=== PATIENT | male | born 1940 | race Caucasian/White ===

== ENCOUNTER 2017-05-21 07:51 | Inpatient (IN) ==
--- NOTE | 2017-05-20 17:33 | Discharge Summary ---
<Mayuri Ruiz - Last Filed: 05/20/17 17:28> Date of Encounter: 05/20/17 - Discharge Diagnosis (1) Osteoarthritis of left knee Priority: Primary Status: Chronic Qualifiers: Osteoarthritis type: unspecified Qualified Code(s): M17.12 - Unilateral primary osteoarthritis, left knee (2) Status post total left knee replacement Status: Acute (3) Lumbar stenosis Priority: Secondary Status: Chronic Qualifiers: Neurogenic claudication status: unspecified Qualified Code(s): M48.061 - Spinal stenosis, lumbar region without neurogenic claudication (4) History of loop recorder Priority: Secondary Status: Chronic (5) History of CVA (cerebrovascular accident) Priority: Secondary Status: Chronic (6) Anxiety Priority: Secondary Status: Chronic - Discharge Medications Home Medications: Aspirin Enteric Coated [Aspirin EC] 325 mg PO DAILY 21 Days #21 tablet. [Rx] OxyCODONE Immed Rel [Roxicodone 5 MG] 5 mg PO Q6HR PRN 7 Days #28 tablet [Rx] LORazepam [Ativan] 1 mg PO HS 05/21/17 [History] Allergies/Adverse Reactions: 3 Allergy/AdvReac Type Severity Reaction Status Date / Time Iodinated Contrast- Oral and Allergy Itching Verified 05/21/17 08:11 IV Dye [Iodinated Contrast Media - IV Dye] Primary care physician: Stefan Murrieta MD - Patient Status Disposition: Home Health Service Condition: Good - Discharge Instructions Follow Up With: Stefan Murrieta MD [Primary Care Provider] - - Hospital Course Hospital course: Mr. Diaz is a 77 year old male - Time Spent with Patient Total time spent providing and/or coordinating discharge services: <Chencho Mueller - Last Filed: 05/23/17 08:07> Date of Encounter: 05/23/17 Time of Encounter: 08:06 - Discharge Diagnosis (1) Osteoarthritis of left knee Priority: Primary Status: Chronic Qualifiers: Osteoarthritis type: unspecified Qualified Code(s): M17.12 - Unilateral primary osteoarthritis, left knee (2) Status post total left knee replacement Priority: Primary Status: Acute (3) Lumbar stenosis Priority: Secondary Status: Chronic Qualifiers: Neurogenic claudication status: unspecified Qualified Code(s): M48.061 - Spinal stenosis, lumbar region without neurogenic claudication (4) History of CVA (cerebrovascular accident) Priority: Secondary Status: Chronic (5) Anxiety Priority: Secondary Status: Chronic Primary care physician: Stefan Murrieta MD - Patient Status Functional capacity at discharge: uses cane/walker Overall status at discharge: patient is progressing back to baseline - Hospital Course Hospital course: Mr. Diaz is a 77 year old male Status post left total knee replacement The patient had an uneventful postoperative course. They received antibiotics and physical therapy and were discharged in stable condition. There will follow -up in the office in 2 weeks. - Time Spent with Patient Total time spent providing and/or coordinating discharge services:
[~2017-05-21 07:51] MED LIST: Povidone-Iodine 22.5 ML, Sodium Chloride IRRigation 500 ML IR ONE
[2017-05-21] MEDS ORDERED: Ethanol\\Acetic Acid\\Na Ace\\Ben 1,000 ML IRRIG.SOLN IR ONE (07:54)
--- NOTE | 2017-05-21 08:04 | History & Physical Report ---
Date of Encounter: 05/21/17 Time of Encounter: 08:04 24 Hour HP Update - Instructions Instructions: If the History and Physical is less than 30 days old and was completed prior to A.M. admission and or procedure and has NOT been updated on calendar day of procedure please complete this update prior to performing procedure. - Update Patient reports changes in Medical Condition: No Changes in examination, assessment, or condition: No Changes in Medication: No Preop tests/diagnostics Reviewed: Yes Surgery Remains Indicated: Yes Consent for Planned Operative Procedure(s) Verified: Yes - Pre-Operative Checklist Preoperative Checklist Indicated: No Prophylactic Antibiotic Ordered: Yes Is VTE Prophylaxis Indicated?: Yes
[2017-05-21] MEDS ORDERED: Gabapentin 300 MG CAPSULE PO ONE (08:09)
[2017-05-21] MEDS ORDERED: Famotidine 20 MG/2 ML VIAL IVP ONE (08:09)
[2017-05-21] MEDS ORDERED: CeFAZolin Syr 2,000MG/20 ML 2,000 MG/20 ML SYRINGE IVPB ONE (08:11)
[2017-05-21] MEDS ORDERED: *HR* Propofol 200 MG/20 ML VIAL IVP ONE (08:14)
[2017-05-21] MEDS ORDERED: *HR* Midazolam HCl 2 MG/2 ML VIAL ONE (08:14)
[2017-05-21] MEDS ORDERED: *HR* FentaNYL (PF) 100 MCG/2 ML VIAL ONE (08:14)
[2017-05-21] MEDS ORDERED: Ringers Solution, Lactated 1,000 ML IVC SCH (08:15)
[2017-05-21] MEDS ORDERED: Lidocaine -MPF 1% 2 ML VIAL ONE (08:16)
[2017-05-21] MEDS ORDERED: Lidocaine -MPF 1% 2 ML VIAL ID ONE (08:27)
--- NOTE | 2017-05-21 08:47 | Anesthesia Evaluation PreOp ---
Date of Encounter: 05/21/17 Time of Encounter: 08:45 - Past History Planned Operation: Left Total Knee Replacement Cardiac History: HTN, Hyperlipidemia, Arrhythmia (On Loop Recorder) Pulmonary History: Denies Any Significant HX DEVELOPMENT TECHNICAL LEAD History: CVA (1 year ago, no residual weakness), Other (paresthesia and weakness due to spinal stenosis lower extremity) Other Medical History: Denies Any Significant HX Anesthesia History: No Prior Anesthetic Complications Alcohol Use: none Drug use: none Medications and Allergies Aspirin Enteric Coated [Aspirin EC] 325 mg PO DAILY 21 Days #21 tablet. [Rx] OxyCODONE Immed Rel [Roxicodone 5 MG] 5 mg PO Q6HR PRN 7 Days #28 tablet [Rx] LORazepam [Ativan] 1 mg PO HS 05/21/17 [History] 3 Allergy/AdvReac Type Severity Reaction Status Date / Time Iodinated Contrast- Oral and Allergy Itching Verified 05/21/17 08:11 IV Dye [Iodinated Contrast Media - IV Dye] - Meds/Allergy Pre-op Review Medications Reviewed: Yes Allergies Reviewed: Yes Beta Blockers on Current Med List: No Anesthesia Results - Labs Laboratory Tests 08/04/15 05/08/17 05/08/17 11:19 15:37 15:37 Hgb 15.0 POC Hgb 13.3 Plt Count 264 Sodium 140 Potassium 4.1 BUN 19 Creatinine 0.92 - Imaging EKG: report reviewed (SB with arrhythmia) Additional studies: EF 60% from 2017 ECHO Anesthesia Exam O2 Sat Height 1.83 m Height 1.83 m Weight 68.039 kg Weight 68.039 kg O2 Sat by Pulse Oximetry 98 Vital Signs Temp Pulse Resp BP Pulse Ox 98.4 F 64 18 157/89 98 05/21/17 08:16 05/21/17 08:16 05/21/17 08:16 05/21/17 08:16 05/21/17 08:16 Height: 6'0 Weight: 150 lbs NPO (# of Hours): MN Pain Scale: 0 - HEENT Pupil (Motor): Pupils equal, EOMI Mallampati: III Denture Type: Upper: Complete Oral Opening: Less than or equal to 3 - DEVELOPMENT TECHNICAL LEAD LOC: Oriented DEVELOPMENT TECHNICAL LEAD Motor: Normal RUE, Normal LUE, Normal RLE, Deficit LLE (weakness) DEVELOPMENT TECHNICAL LEAD Sensory: Normal: RUE, LUE, RLE, Face, Deficit: LLE (paresthesia) - Cardiac Rhythm: Regular Murmur: None JVD: No Carotid Bruit: No - Pulmonary Breath Sounds: bilateral Clear Respiratory Effort: Symmetrical Anesthesia Assess/Plan ASA Score: 3 (HTN CVA Arrhythmia) Modified Ramon Scale for Level of Consciousness: Cooperative, oriented, and tranquil Anesthetic Plan: General Monitoring Plan: Standard Monitors Recovery Plan: PACU (Discussed GA, agrees to proceed)
[2017-05-21] MEDS ORDERED: Ondansetron 4 MG/2 ML VIAL IVP ONE (09:45)
[2017-05-21] MEDS ORDERED: *HR* Promethazine 25 MG/ML VIAL IVP PRN (09:45)
[2017-05-21] MEDS ORDERED: Dexamethasone 4 MG/ML VIAL ONE (09:54)
[2017-05-21] MEDS ORDERED: Lidocaine -MPF 2% 2 ML VIAL ONE (09:54)
[2017-05-21] MEDS ORDERED: Ondansetron 4 MG/2 ML VIAL ONE (09:54)
[2017-05-21] MEDS ORDERED: *HR* HYDROmorphone 2 MG/ML SYRINGE ONE (10:14)
--- NOTE | 2017-05-21 10:39 | Orthopedic Operative Note ---
Date of procedure: 05/21/17 Pre-op diagnosis: left knee arthritis Post-op diagnosis: same Procedure: Procedure: left robotic-assisted Total knee replacement Estimated blood loss: 300 cc Hardware: Metal and polyethylene replacement. [place] Femur: 5 Tibia:5 PS insert: 13 Patella: 39 Exam Under anesthesia:1 flexion and 2 degree valgus as calculated by the robot full flexion and no instability Procedural Notes: grade 3 changes all 3 compartments Operative procedure: The patient was brought to the operating room and placed on the operating room table. After general anesthesia was administered the operative knee was examined. Findings were noted in the exam under anesthesia. The operative extremity was prepped and draped in sterile surgical fashion. The patient received IV antibiotics prior to skin incision. A standard midline incision was made centered over the patella. The incision was made through the skin and subcutaneous tissue. A medial parapatellar tendon approach was performed. Care was taken to preserve tissue along the medial aspect of the patella. And to protect the patella tendon. The deep MCL was released off the medial tibia. The infra patella fat pad was excised. The patella was everted and cut was made at the level of the insertion of the quadriceps and patella tendon. The patella was sized to a 39 the guide was seated and the lug holes are drilled. Knee was brought into flexion. Patient noted to have grade 3 changes all 3 compartments. Steinmann pins were placed in the tibia and the femur for the tibial and femoral arrays respectively. Checkpoints were also placed in the tibia and the femur for calculation purposes. The knee including the femur and the tibial registered. Osteophytes, ACL and PCL were excised at this point. Patient noted to have a 1 degree flexion contracture and 2 degrees of valgus. Extension and flexion were assessed with a valgus stress components were adjusted on the computer to balance the knee. Femoral cuts were made first with robotic assistance, these included the anterior cut posterior cuts chamfer cuts. Tibial cut was then performed with robotic assistance as well. Bone fragments were removed, as well as the medial and lateral meniscus. The size 5 femoral guide was seated box cut was made lug holes are drilled. The size5 tibial tray was seated and prepared with the fin cutter. Trial reduction with the 13 PS Abby revealed extension of 0 degree and full flexion 0 degrees varus. No varus valgus instability. Trial reduction revealed excellent patella tracking. All trial components were removed all bony surfaces were irrigated. The Tibia was seated followed by the femur, The Abby size 13 was seated and secured patella. Patient had similar findings for motion and stability. The knee was closed by the PA. The knee was then irrigated out with 2 L of pulse irrigation. The extensor mechanism was closed with #2 FiberWire suture and #2 PDS suture. The subcutaneous tissue was then irrigated and closed deep with #1 PDS suture superficially with 0 PDS suture and skin was closed with zip tie The patient was then placed in a sterile dressing and a postoperative brace extubated and transferred to recovery room in stable condition. Anesthesia: GETA Surgeon: Chencho Mueller (40) Was there an assistant engineer present: No Estimated blood loss (cc): 300 Condition: stable Disposition: PACU
[2017-05-21] MEDS: *HR* HYDROmorphone (PF) 1 MG/ML SYRINGE IVP PRN ×4 (11:33→23:38)
--- NOTE | 2017-05-21 11:59 | Anesthesia Evaluation Post Op ---
Date of Encounter: 05/21/17 Time of Encounter: 11:58 - Vital Signs Vital Signs: Selected Entries 05/21/17 11:37 05/21/17 11:47 Temperature 98.2 F Pulse Rate 59 Respiratory Rate 16 Blood Pressure 169/99 O2 Sat by Pulse Oximetry 99 Oxygen Flow Rate (LPM) 2 - Lungs Lungs: Clear Ascult./Percussion - Airway Airway: Non-obstructed - Cardiovascular Regular Rate - Mental Status Mental Status: Alert & Oriented, Answers Appropriately - Pain Pain Scale: 6 Pain Scale used: Numeric (1 - 10) - Nausea Vomiting Nausea Vomiting: Not Present - Hydration Hydration: Ice chips, Has not voided - Discharge PostOp Status: Transfer Patient to floor
[2017-05-21 12:10] LABS: Hematocrit 45.3 % (37.5-50.1); Hemoglobin 14.5 g/dL (12.9-16.9)
[2017-05-21] MEDS ORDERED: Naloxone 0.4 MG/ML INJ IVP PRN (12:32)
[2017-05-21] MEDS ORDERED: Temazepam 15 MG CAPSULE PO PRN (12:32)
[2017-05-21] MEDS ORDERED: *HR* OxyCODONE Immed Rel 5 MG TABLET PO PRN (12:32)
[2017-05-21] MEDS ORDERED: Sennosides 8.6 MG TABLET PO PRN (12:32)
[2017-05-21] MEDS ORDERED: MOM Conc 10 ML UD.LIQ PO PRN (12:32)
[2017-05-21] MEDS: Ondansetron 4 MG/2 ML VIAL IVP PRN (13:14)
[2017-05-21] MEDS: Ringers Solution, Lactated 1,000 ML IVC SCH ×2 (13:16→14:31)
[2017-05-21] MEDS: CeFAZolin Premix DUPLEX 2,000 MG/50 ML BAG IVPB SCH ×2 (16:27→23:38)
[2017-05-21] MEDS: *HR* Enoxaparin 30 MG/0.3 ML SYRINGE SQ SCH (16:28)
[2017-05-21] MEDS: *HR* OxyCODONE Immed Rel 5 MG TABLET PO PRN ×2 (16:33→21:20)
[2017-05-21] MEDS ORDERED: *HR* Enoxaparin 30 MG/0.3 ML SYRINGE SQ SCH (18:00)
[2017-05-21] MEDS ORDERED: Promethazine 12.5 MG in 0.9 % Sodium Chloride 50 ML IVPB PRN (18:40)
[2017-05-21] MEDS: *HR* Promethazine 25 MG/ML VIAL IVP PRN (18:54)
[2017-05-21] MEDS: *HR* LORazepam 1 MG TABLET PO SCH (21:20)
[2017-05-22] MEDS: *HR* OxyCODONE Immed Rel 5 MG TABLET PO PRN ×4 (03:43→21:06)
[2017-05-22] MEDS: Ringers Solution, Lactated 1,000 ML IVC SCH (03:46)
[2017-05-22] MEDS: *HR* Enoxaparin 30 MG/0.3 ML SYRINGE SQ SCH ×2 (05:57→18:12)
[2017-05-22] MEDS: *HR* HYDROmorphone (PF) 1 MG/ML SYRINGE IVP PRN ×2 (05:58→10:47)
--- NOTE | 2017-05-22 06:26 | Orthopedics Progress Note ---
Date of Encounter: 05/22/17 Time of Encounter: 06:25 - Assessment and Plan (1) Osteoarthritis of left knee Current Visit: No Status: Chronic Qualifiers: Osteoarthritis type: unspecified Qualified Code(s): M17.12 - Unilateral primary osteoarthritis, left knee (2) Status post total left knee replacement Current Visit: No Status: Acute (3) Lumbar stenosis Current Visit: No Status: Chronic Qualifiers: Neurogenic claudication status: unspecified Qualified Code(s): M48.061 - Spinal stenosis, lumbar region without neurogenic claudication (4) History of CVA (cerebrovascular accident) Current Visit: No Status: Chronic (5) Anxiety Current Visit: No Status: Chronic Subjective Interval history: Patient was seen this morning doing well without complaints. Afebrile vital signs stable. Operative extremity: Neurovascularly intact Dressing clean dry and intact Calves nontender Assessment and plan: Continue with postoperative care Postop hematocrit 45 Objective Vital signs: Vital Signs Temp Pulse Resp BP Pulse Ox 05/22/17 04:31 98.6 F 85 17 156/78 95 05/22/17 00:11 99.7 F H 77 19 125/79 93 05/21/17 20:48 98.0 F 66 14 164/86 97 05/21/17 16:35 60 14 187/98 97 05/21/17 14:24 97.8 F 63 16 144/83 93 05/21/17 13:30 98.2 F 62 16 150/83 94 05/21/17 13:00 98.2 F 63 16 154/84 95 05/21/17 12:38 98.1 F 65 16 172/99 100 05/21/17 12:35 100 05/21/17 12:17 66 16 162/94 100 05/21/17 12:07 98.1 F 60 16 164/97 100 05/21/17 11:57 56 16 167/94 100 05/21/17 11:47 59 16 169/99 99 05/21/17 11:37 98.2 F 60 16 165/94 100 05/21/17 11:27 62 16 181/109 100 05/21/17 11:17 63 16 167/99 100 05/21/17 11:07 97.0 F L 64 12 183/97 100 05/21/17 09:19 60 96 05/21/17 08:16 98.4 F 64 18 157/89 98 Intake and Output 05/21/17 05/21/17 05/22/17 15:59 23:59 07:59 Intake Total 1000 / 1000 50 / 50 1050 / 1050 Output Total 600 / 600 675 / 675 Balance 400 / 400 50 / 50 375 / 375 Intake: IV Fluids 1000 / 1000 50 / 50 1050 / 1050 Lactated Ringers 1,000 ML @ 75 1000 / 1000 1000 / 1000 mls/hr IVC .[id number] BANDAR Rx#: [id number] Ancef Premix DUPLEX 2,000 mg In 50 / 50 50 / 50 50 ml @ 100 mls/hr IVPB Q8HR BANDAR Rx#:[id number] Output: Urine 300 / 300 675 / 675 Estimated Blood Loss 300 / 300 Other: Weight 68.039 kg - Labs CBC & BMP: 05/21/17 11:49 - VTE Documentation of Mechanical Device: Venous foot pump, device Consult Discharge Plan - Plan Referrals: Stefan Murrieta MD [Primary Care Provider] -
[2017-05-22 07:28] LABS: Hematocrit 41.9 % (37.5-50.1); Hemoglobin 13.4 g/dL (12.9-16.9)
[2017-05-22 07:43] LABS: BUN/Creatinine Ratio 13 (6-26); Blood Urea Nitrogen 14 mg/dL (8-23); Calcium 8.6 mg/dL (8.6-10.3); Carbon Dioxide 30 mEq/L (23-29); Chloride 102 mEq/L (98-107); Glucose 155 mg/dL (70-105); Osmolality,Calculated 290 (280-300); Potassium 4.4 mEq/L (3.5-5.1); Sodium 138 mEq/L (136-145); eGFR For African Americans > 60 (> 60); eGFR For Non-African Americans > 60 (> 60)
[2017-05-22] MEDS: *HR* Promethazine 25 MG/ML VIAL IVP PRN (09:24)
[2017-05-22] MEDS ORDERED: *HR* HYDROmorphone (PF) 1 MG/ML SYRINGE IVP PRN (12:37)
[2017-05-22] MEDS: Ondansetron 4 MG/2 ML VIAL IVP PRN (14:10)
--- NOTE | 2017-05-22 17:42 | Physician Discharge Referral ---
[facility] Referral Info [facility] Provider in Charge: Dr Chencho Mueller - Diagnosis (1) Osteoarthritis of left knee Priority: Primary Status: Chronic (2) Status post total left knee replacement Priority: Primary Status: Acute (3) Lumbar stenosis Priority: Secondary Status: Chronic (4) History of loop recorder Priority: Secondary Status: Chronic (5) History of CVA (cerebrovascular accident) Priority: Secondary Status: Chronic (6) Anxiety Priority: Secondary Status: Chronic Expected Duration of Placement: less than 30 days Prognosis: Good Aware of Diagnosis: Patient Aware of Prognosis: Patient - Transfer Medications Home Medications: Aspirin Enteric Coated [Aspirin EC] 325 mg PO DAILY 21 Days #21 tablet. [Rx] OxyCODONE Immed Rel [Roxicodone 5 MG] 5 mg PO Q6HR PRN 7 Days #28 tablet [Rx] LORazepam [Ativan] 1 mg PO HS 05/21/17 [History] Allergies/Adverse Reactions: 3 Allergy/AdvReac Type Severity Reaction Status Date / Time Iodinated Contrast- Oral and Allergy Itching Verified 05/21/17 08:11 IV Dye [Iodinated Contrast Media - IV Dye] - Respiratory Orders Smoking Cessation: Smoking cessation has been advised. For more information, call the [employer] Tobacco Quit Line at 3-666-TPRQNOW. - Ancillary Orders May use pressure relief devices daily prn, May go on NEREYDA w/family/respon green party w /meds at nurse discretion PRN, May consult with Dentist, Waiter, Blueprint Developer PRN - Mobility Orders Chair, Ambulate - Rehabiliation Orders Rehab Potential: Good Rehab Orders: ROM Exercises, Evaluation for Physical Therapy, Evaluation for Occupational Therapy Other: Total Knee replacement Precautions x 6 weeks Apply cold therapy wrap 3-6x/day for 20 minutes at a time. Encourage ambulation throughout the day and incentive spirometer 10x/hour. Elevate affected extremity above heart as tolerated. Brace: Wear knee immobilizer at night x 2 weeks. - Treatments Skin tear care topically daily PRN per policy List/Other: Opsite placed. Keep dressing intact until first follow up appointment. If > 50% saturated, notify office, remove dressing and place appropriate dressing back in place. Leave Zipline intact. Opsite dressing is water resistant, not water- proof. OK to shower, but do not get dressing wet. - Diet Orders Regular CERTIFICATION: I certify that the transfer of the above named patient to an Extended Care Facility is necessary for the continuing treatment of the diagnosis listed. The above information is true and accurate reflection of patient's current condition. Confidential - Redisclosure prohibited without a patient's written consent.
--- NOTE | 2017-05-22 17:44 | Event Note ---
Date of Encounter: 05/22/17 Time of Encounter: 12:00 PCR- POD#1 s/p L TKR robotic 05/21/17 Ervin PCR - Patient seen at bedside. Pain control: Adequate Participating in PT. All questions and concerns addressed. Educated on use of incentive spirometer, ambulation, and hydration. Patient educated on post-operative restrictions and care. Addressed: Pain control - decreasing frequency of IV meds, adding cyclobenzaprine and lidoderm patch. Patient educated about appropriate expectations re: pain and appropriate use of narcotic pain medication D/C plan: ECF - continuity placed.
[2017-05-22 19:50] LABS: Bilirubin,Urine Negative (Negative); Blood,Urine Negative (Negative); Clarity,Urine Clear (Clear); Color,Urine Yellow (Yellow); Glucose,Urine (UA) Normal (Normal); Ketones,Urine Negative (Negative); Leukocyte Esterase,Urine Negative (Negative); Nitrite,Urine Negative (Negative); Protein,Urine Negative (Neg-Trace); Specific Gravity,Urine 1.014 (1.010-1.025); Urobilinogen,Urine Normal (Normal)
[2017-05-22] MEDS: *HR* LORazepam 1 MG TABLET PO SCH (21:06)
[2017-05-23] MEDS: *HR* OxyCODONE Immed Rel 5 MG TABLET PO PRN ×4 (02:06→18:38)
[2017-05-23] MEDS: *HR* Enoxaparin 30 MG/0.3 ML SYRINGE SQ SCH ×2 (05:28→18:38)
[2017-05-23 07:06] LABS: BUN/Creatinine Ratio 13 (6-26); Blood Urea Nitrogen 13 mg/dL (8-23); Calcium 8.6 mg/dL (8.6-10.3); Carbon Dioxide 29 mEq/L (23-29); Chloride 101 mEq/L (98-107); Glucose 146 mg/dL (70-105); Osmolality,Calculated 285 (280-300); Potassium 4.1 mEq/L (3.5-5.1); Sodium 136 mEq/L (136-145); eGFR For African Americans > 60 (> 60); eGFR For Non-African Americans > 60 (> 60)
[2017-05-23 07:18] LABS: Hematocrit 41.4 % (37.5-50.1); Hemoglobin 13.1 g/dL (12.9-16.9)
--- NOTE | 2017-05-23 08:07 | Orthopedics Progress Note ---
Date of Encounter: 05/23/17 Time of Encounter: 08:07 - Assessment and Plan (1) Osteoarthritis of left knee Current Visit: No Status: Chronic Qualifiers: Osteoarthritis type: unspecified Qualified Code(s): M17.12 - Unilateral primary osteoarthritis, left knee (2) Status post total left knee replacement Current Visit: No Status: Acute (3) Lumbar stenosis Current Visit: No Status: Chronic Qualifiers: Neurogenic claudication status: unspecified Qualified Code(s): M48.061 - Spinal stenosis, lumbar region without neurogenic claudication (4) History of CVA (cerebrovascular accident) Current Visit: No Status: Chronic (5) Anxiety Current Visit: No Status: Chronic Subjective Interval history: Patient was seen this morning doing well without complaints. Afebrile vital signs stable. Operative extremity: Neurovascularly intact Dressing clean dry and intact Calves nontender Assessment and plan: Continue with postoperative care Postop hematocrit 41 discharged today Objective Vital signs: Vital Signs Temp Pulse Resp BP Pulse Ox 05/23/17 06:29 98.5 F 94 18 146/73 94 05/23/17 04:01 98.8 F 90 17 142/81 92 05/22/17 23:47 100 F H 84 18 145/90 92 05/22/17 19:22 99.5 F 80 18 156/83 95 05/22/17 16:08 100.0 F H 84 16 144/83 95 Intake and Output 05/22/17 05/23/17 05/23/17 23:59 07:59 15:59 Intake Total 50 / 50 50 / 50 Output Total 575 / 575 300 / 300 Balance -525 / -525 -250 / -250 Intake: Oral 50 / 50 50 / 50 Output: Urine 575 / 575 300 / 300 - Labs CBC & BMP: 05/23/17 05:58 05/23/17 05:58 Labs: Abnormal lab results Glucose 146 mg/dL (70-105) H 05/23/17 05:58 - VTE Documentation of Mechanical Device: Venous foot pump, device Consult Discharge Plan - Plan Referrals: Stefan Murrieta MD [Primary Care Provider] -
[2017-05-23] MEDS: *HR* LORazepam 1 MG TABLET PO SCH (21:35)
[2017-05-24] MEDS: *HR* Enoxaparin 30 MG/0.3 ML SYRINGE SQ SCH (05:26)
[2017-05-24] MEDS: *HR* OxyCODONE Immed Rel 5 MG TABLET PO PRN ×2 (09:55→14:32)
[2017-05-24 10:46] VITALS: BP 129/74
== END 2017-05-24 16:25 | disposition home health service (06) | DRG 470 ==
LOC: SAMDAY 07:51 → 3NENU 12:47
PROVIDERS: ADMIT Orthopaedic Surgery; ATTEND Orthopaedic Surgery

== ENCOUNTER 2021-03-28 01:24 | Inpatient (IN) ==
[2021-03-28] MEDS ORDERED: Morphine Sulfate 2 MG/ML SYRINGE IVP PRN (10:55)
[2021-03-28] MEDS ORDERED: Naloxone 0.4 MG/ML INJ IVP PRN (10:56)
[2021-03-28] MEDS ORDERED: *HR* HYDROcodone/Acet 5/325 mg TABLET PO PRN (10:56)
[2021-03-28] MEDS ORDERED: *HR* OxyCODONE Immed Rel 5 MG TABLET PO PRN (10:56)
[2021-03-28] MEDS ORDERED: Acetaminophen 325 MG TABLET PO PRN (10:56)
[2021-03-28] MEDS ORDERED: Ringers Solution, Lactated 1,000 ML IVC SCH (11:00)
[2021-03-28] MEDS ORDERED: Sennosides/Docusate Sodium TABLET PO PRN (11:01)
[2021-03-28 11:47] LABS: Basophils % 0.2 %; Hemoglobin 14.7 g/dL (12.9-16.9); Immature Granulocytes % 0.3 % (0-4); Lymphocytes # 0.7 K/mcL (0.6-4.6); Lymphocytes % 5.5 %; Mean Corpuscular HGB Conc 31.3 g/dL (31.6-35.5); Mean Corpuscular Hemoglobin 28.5 pg (28.0-33.3); Mean Corpuscular Volume 91.1 fL (83.0-100.0); Mean Platelet Volume 8.9 fL (9.4-12.4); Monocytes # 0.7 K/mcL (0.0-1.3); Monocytes % 5.7 %; Neutrophils # 10.6 K/mcL (1.6-8.9); Platelet Count 252 K/mcL (140-400); Red Blood Count 5.16 M/mcL (4.19-5.50); Red Cell Distribution Width 13.5 % (11.5-14.5); Segmented Neutrophils % 88.3 %
[2021-03-28 11:55] LABS: BUN/Creatinine Ratio 20 (6-26); Blood Urea Nitrogen 18 mg/dL (8-23); Calcium 8.7 mg/dL (8.6-10.3); Carbon Dioxide 26 mEq/L (23-29); Chloride 105 mEq/L (98-107); Glucose 137 mg/dL (70-105); Osmolality,Calculated 290 (280-300); Potassium 4.5 mEq/L (3.5-5.1); Sodium 138 mEq/L (136-145); eGFR For African Americans > 60 (> 60); eGFR For Non-African Americans > 60 (> 60)
[2021-03-29 05:51] LABS: Basophils % 0.4 %; Eosinophils % 0.4 %; Hematocrit 40.4 % (37.5-50.1); Immature Granulocytes % 0.3 % (0-4); Lymphocytes # 1.4 K/mcL (0.6-4.6); Lymphocytes % 17.1 %; Mean Corpuscular HGB Conc 31.7 g/dL (31.6-35.5); Mean Corpuscular Hemoglobin 28.4 pg (28.0-33.3); Mean Corpuscular Volume 89.8 fL (83.0-100.0); Mean Platelet Volume 9.1 fL (9.4-12.4); Monocytes # 0.7 K/mcL (0.0-1.3); Monocytes % 9.3 %; Neutrophils # 5.8 K/mcL (1.6-8.9); Platelet Count 221 K/mcL (140-400); Red Cell Distribution Width 13.6 % (11.5-14.5); Segmented Neutrophils % 72.5 %
[2021-03-29] MEDS: Pantoprazole 40 MG VIAL IVP SCH ×3 (05:52→20:04)
[2021-03-29 06:00] LABS: Hemoglobin 12.8 g/dL (12.9-16.9)
[2021-03-29 06:02] LABS: INR 1.1; Prothrombin Time 11.8 Seconds (9.4-12.1)
[2021-03-29 06:06] LABS: BUN/Creatinine Ratio 22 (6-26); Blood Urea Nitrogen 19 mg/dL (8-23); Calcium 8.5 mg/dL (8.6-10.3); Carbon Dioxide 26 mEq/L (23-29); Chloride 104 mEq/L (98-107); Glucose 101 mg/dL (70-105); Osmolality,Calculated 286 (280-300); Potassium 3.9 mEq/L (3.5-5.1); Sodium 137 mEq/L (136-145); eGFR For African Americans > 60 (> 60); eGFR For Non-African Americans > 60 (> 60)
[2021-03-29] MEDS: Sennosides/Docusate Sodium TABLET PO SCH ×2 (11:52→20:04)
[2021-03-29] MEDS: Ondansetron 4 MG/2 ML VIAL IVP PRN (12:09)
[2021-03-29] MEDS ORDERED: Aspirin 81 MG TAB.CHEW PO PRN (15:35)
[2021-03-29] MEDS: Morphine Sulfate 2 MG/ML SYRINGE IVP PRN ×2 (15:40→20:04)
[2021-03-30] MEDS ORDERED: *HR* Labetalol 20 MG/4 ML SYRINGE IVP ONE (01:11)
[2021-03-30] MEDS: Ondansetron 4 MG/2 ML VIAL IVP PRN ×2 (04:43→12:32)
[2021-03-30] MEDS: Sennosides/Docusate Sodium TABLET PO SCH (07:22)
[2021-03-30] MEDS: Pantoprazole 40 MG VIAL IVP SCH (07:22)
[2021-03-30] MEDS: Morphine Sulfate 2 MG/ML SYRINGE IVP PRN ×2 (07:23→12:33)
[2021-03-30 07:52] LABS: Basophils % 0.1 %; Hematocrit 48.9 % (37.5-50.1); Immature Granulocytes % 0.4 % (0-4); Lymphocytes # 0.8 K/mcL (0.6-4.6); Lymphocytes % 7.9 %; Mean Corpuscular HGB Conc 32.3 g/dL (31.6-35.5); Mean Corpuscular Hemoglobin 28.7 pg (28.0-33.3); Mean Corpuscular Volume 88.7 fL (83.0-100.0); Mean Platelet Volume 8.9 fL (9.4-12.4); Monocytes # 0.6 K/mcL (0.0-1.3); Monocytes % 5.6 %; Neutrophils # 8.9 K/mcL (1.6-8.9); Platelet Count 248 K/mcL (140-400); Red Blood Count 5.51 M/mcL (4.19-5.50); Red Cell Distribution Width 13.1 % (11.5-14.5); White Blood Count 10.3 K/mcL (4.3-11.1)
[2021-03-30 07:58] LABS: Hemoglobin 15.8 g/dL (12.9-16.9)
[2021-03-30 08:14] LABS: BUN/Creatinine Ratio 23 (6-26); Blood Urea Nitrogen 19 mg/dL (8-23); Calcium 9.1 mg/dL (8.6-10.3); Carbon Dioxide 26 mEq/L (23-29); Chloride 97 mEq/L (98-107); Glucose 130 mg/dL (70-105); Osmolality,Calculated 282 (280-300); Potassium 4.1 mEq/L (3.5-5.1); Sodium 134 mEq/L (136-145); eGFR For African Americans > 60 (> 60); eGFR For Non-African Americans > 60 (> 60)
[2021-03-30] MEDS ORDERED: Metoclopramide 10 MG/2 ML VIAL IVP ONE (08:26)
[2021-03-30] MEDS ORDERED: amLODIPine 5 MG TABLET PO SCH (09:00)
[2021-03-30] MEDS ORDERED: *HR* Propofol 200 MG/20 ML VIAL IVP ONE (14:09)
[2021-03-30] MEDS ORDERED: Lidocaine -MPF 2% 5 ML VIAL ONE ×2 (14:09→14:10)
[2021-03-30 14:50] VITALS: BP 156/80; PULSE 63; TEMP 97.6; O2SAT 95
[2021-03-30] MEDS ORDERED: FLU Vac QV 21-22 (6Month+)/PF 0.5 ML SYRINGE IM ONE (15:32)
== END 2021-03-30 16:15 | disposition home or self-care (01) | DRG 392 ==
LOC: 3ANU → SUATTDRO 10:04
PROVIDERS: ADMIT Internal Medicine; ATTEND Internal Medicine